=== PATIENT | male | born 1980 | race Caucasian/White ===

== ENCOUNTER 2019-02-21 14:24 | Emergency (ER) | payer BC ==
[~2019-02-21] VITALS: Ht 167.6 cm; Wt 94.7 kg
[2019-02-21] MEDS ORDERED: KETOROLAC 30 MG/1 ML ONE (14:58)
[2019-02-21] MEDS ORDERED: ONDANSETRON 2MG/ML, 2ML ONE (14:59)
[2019-02-21] MEDS ORDERED: HYDROmorphone 1 MG/ML, 1ML INJ ONE ×2 (14:59→15:46)
[2019-02-21] MEDS ORDERED: ONDANSETRON 2MG/ML, 2ML IVPush ONE (15:00)
[2019-02-21] MEDS ORDERED: SODIUM CHLORIDE FLUSH 10ML SYR IVF ONE (15:00)
[2019-02-21] MEDS ORDERED: KETOROLAC 30 MG/1 ML IVPush ONE (15:00)
--- NOTE | 2019-02-21 15:05 | NUR ---
FIRST CONTACT WITH PT. PT C/O LT FLANK PAIN DARK URINE STARTING THIS AM. HX KIDNEY STONE. PT'S AOX4. RESPS EVEN AND UNLABORED. PT DENIES N/V/D. BP/SPO2 MONITORS IN PLACE. CALL LIGHT WITHIN REACH. EDMD AT BEDSIDE TO EVALUATE AT THIS TIME.
[2019-02-21] MEDS: HYDROmorphone 1 MG/ML, 1ML INJ IVPush PRN ×2 (15:06→15:49)
[2019-02-21 15:08] LABS: BASOPHILS # (AUTO) 0.02 x10^3/uL (0-0.1); BASOPHILS % (AUTO) 0 % (0-1); EOSINOPHILS # (AUTO) 0.02 x10^3/uL (0-0.4); EOSINOPHILS % (AUTO) 0 % (1-7); LYMPHOCYTES % (AUTO) 14 % (22-44); MD NO; MEAN CORPUSCULAR HEMOGLOBIN 31.3 pg (27.5-34.5); MEAN CORPUSCULAR HGB CONC 33.7 g/dL (33.2-36.2); MEAN CORPUSCULAR VOLUME 92.9 fL (81-97); MEAN PLATELET VOLUME 7.5 fL (7.4-10.4); MONOCYTES # (AUTO) 0.27 x10^3/uL (0.2-0.8); MONOCYTES % (AUTO) 4 % (2-9); NEUTROPHILS # (AUTO) 5.87 x10^3/uL (1.8-6.8); NEUTROPHILS % (AUTO) 82 % (42-75); PLATELET COUNT 273 x10^3/uL (130-400); RED BLOOD COUNT 4.72 x10^6/uL (4.38-5.82); RED CELL DISTRIBUTION WIDTH 12.6 % (9.4-14.8)
--- NOTE | 2019-02-21 15:09 | NUR ---
PT MEDICATED PER EMAR. PT TOLERATED WELL.
[2019-02-21 15:16] LABS: ALBUMIN 3.8 g/dL (3.4-5.0); ANION GAP 9 mmol/L (5-15); CALCIUM 8.4 mg/dL (8.5-10.1); CHLORIDE 109 mmol/L (98-107); CREATININE 1.25 mg/dL (0.7-1.3)
--- NOTE | 2019-02-21 15:18 | NUR ---
URINAL AT BEDSIDE.
[2019-02-21 15:33] LABS: MICROSCOPIC INDICATED
[2019-02-21 15:44] LABS: CULTURE INDICATED? NO
--- NOTE | 2019-02-21 15:50 | NUR ---
PT'S PAIN LEVEL IS 6/10 AT THIS TIME. PT REQUESTED PAIN MED. PT MEDICATED PER EMAR. PT TOLERATED WELL.
[2019-02-21 15:51] VITALS: BP 121/67
--- NOTE | 2019-02-21 16:33 | NUR ---
Patient given discharge instructions and they have confirmed that they understand the instructions. Patient ambulatory with steady gait.
== END 2019-02-21 16:34 | disposition home or self-care (01) ==
LOC: ED 16:28
DX: N13.2 Hydronephrosis with renal and ureteral calculous obstruction (principal); N23 Unspecified renal colic; R31.9 Hematuria, unspecified
CPT/HCPCS: 36415; 74176; 80048; 81001; 82040; 85025; 96374; 96375; 96376; 99284; J1170; J1885; J2405